=== PATIENT | female | born 1975 | race Hispanic/Latino ===

== ENCOUNTER 2018-05-12 18:50 | Emergency (ER) | payer MEDICARE, OTHER ==
[2018-05-12] MEDS ORDERED: MORPHINE SULFATE 4 MG/1ML SYG ONE (19:41)
[2018-05-12] MEDS ORDERED: KETOROLAC TROMETHAMINE 30MG/ML ONE (19:41)
== END 2018-05-12 21:14 | disposition home or self-care (01) ==
LOC: EDH 18:50
DX: S16.1XXA Strain of muscle, fascia and tendon at neck level, initial encounter (principal); R51 Headache; M25.512 Pain in left shoulder; G62.9 Polyneuropathy, unspecified; X58.XXXA Exposure to other specified factors, initial encounter; Y93.89 Activity, other specified; Y92.89 Other specified places as the place of occurrence of the external cause; Y99.8 Other external cause status
CPT/HCPCS: 70450; 72125; 96372 ×2; 99284; J1885; J2270

== ENCOUNTER 2020-11-05 12:03 | Emergency (ER) | payer OTHER, MEDICARE ==
[~2020-11-05] VITALS: Ht 149.9 cm; Wt 81.2 kg
[2020-11-05 12:25] LABS: BASOPHILS % (AUTO) 0.1 % (0.0-5.0); HEMATOCRIT 42.8 % (36-48); LYMPHOCYTES % (AUTO) 10.8 % (21.0-51.0); MEAN CORPUSCULAR HEMOGLOBIN 28.3 pg (27.0-33.0); MEAN CORPUSCULAR HGB CONC 33.6 g/dL (32.0-36.0); MEAN CORPUSCULAR VOLUME 84.1 fL (79-99); MONOCYTES % (AUTO) 5.2 % (3.0-13.0); NEUTROPHILS % (AUTO) 83.5 % (40.0-77.0); PLATELET COUNT (AUTO) 283 K/uL (130-400); RED BLOOD CELL COUNT(AUTO) 5.09 MIL/uL (4.00-5.50); RED CELL DISTRIBUTION WIDTH 12.3 % (11.0-15.5)
[2020-11-05 12:50] LABS: INR 1.05 (0.85-1.15); PARTIAL THROMBOPLASTIN TIME 26.4 SEC (26.3-35.5); PROTHROMBIN TIME 10.9 SEC (9.6-11.6)
[2020-11-05] MEDS ORDERED: LORAZEPAM 2 MG/ML 1 ML VIAL ONE (12:52)
[2020-11-05 12:56] LABS: APPEARANCE,URINE CLEAR (CLEAR); BILIRUBIN,URINE NEGATIVE (NEGATIVE); COLOR,URINE YELLOW (YELLOW); GLUCOSE, URINE (UA) NEGATIVE (NEGATIVE); KETONES,URINE NEGATIVE (NEGATIVE); LEUKOCYTE ESTERASE ,URINE TRACE (NEGATIVE); NITRATE,URINE NEGATIVE (NEGATIVE); OCCULT BLOOD,URINE NEGATIVE (NEGATIVE); PROTEIN,URINE NEGATIVE (NEGATIVE); UROBILINOGEN,URINE 0.2 mg/dL (0.2-1.0)
[2020-11-05 12:56] LABS: ALBUMIN 3.8 g/dL (3.5-5.0); BILIRUBIN,TOTAL 0.3 mg/dL (0.2-1.0); CREATININE 0.9 mg/dL (0.5-1.5); POTASSIUM 3.8 mmol/L (3.5-5.1); TOTAL PROTEIN, SERUM 8.5 g/dL (6.0-8.3)
[2020-11-05 13:01] LABS: AMPHET/METH SCREEN,URINE NEGATIVE (NEGATIVE); BARBITURATE SCREEN, URINE NEGATIVE (NEGATIVE); BENZODIAZEPINES SCREEN,URINE NEGATIVE (NEGATIVE); CANNABINOID SCREEN,URINE NEGATIVE (NEGATIVE); COCAINE SCREEN,URINE POSITIVE (NEGATIVE); OPIATE SCREEN,URINE NEGATIVE (NEGATIVE); PHENCYCLIDINE SCREEN,URINE NEGATIVE (NEGATIVE)
[2020-11-05 13:02] LABS: HCG,QUAL RESULT NEGATIVE (NEGATIVE)
[2020-11-05 13:05] LABS: BACTERIA,URINE Rare /HPF (None Seen); RBC,URINE 0-1 /HPF (0-1); SQUAMOUS EPITHELIAL CELL,UR Few /HPF (0-2); WBC,URINE 0-1 /HPF (0-1)
[2020-11-05 13:10] LABS: B-TYPE NATRIURETIC PEPTIDE 18 pg/mL (0-100)
[2020-11-05] MEDS ORDERED: THIAMINE HCL 100 MG/ML 2ML VIAL ONE (14:53)
[2020-11-05] MEDS ORDERED: ASPIRIN 81MG CHEW TAB ONE (14:53)
[2020-11-05] MEDS ORDERED: ENOXAPARIN SODIUM 40 MG/0.4 ML SYRINGE SQ ONE (14:54)
[2020-11-05] MEDS ORDERED: PANTOPRAZOLE 40 MG/VIAL ONE (14:55)
[2020-11-05] MEDS ORDERED: ACETAMINOPHEN 325 MG TAB ONE (15:18)
[2020-11-05] MEDS ORDERED: IBUPROFEN 600 MG TABLET ONE (18:15)
[2020-11-05] MEDS ORDERED: IBUPROFEN 600 MG TABLET PO PRN (19:30)
== END 2020-11-05 19:46 | disposition home or self-care (01) ==
LOC: EDH 12:03
DX: I24.9 Acute ischemic heart disease, unspecified (principal); F14.10 Cocaine abuse, uncomplicated; Z20.822 Contact with and (suspected) exposure to COVID-19; I10 Essential (primary) hypertension; Z90.49 Acquired absence of other specified parts of digestive tract; Z90.710 Acquired absence of both cervix and uterus
CPT/HCPCS: 36415; 71045; 80053; 80305; 81001; 81025; 82550; 83880; 84484; 85025; 85610; 85730; 87088; 87426; 93005; 96365; 96372; 96375; 99285; C9113; J1650; J2060; J3411; 96374

== ENCOUNTER 2022-01-20 21:50 | Emergency (ER) | payer OTHER, MEDICARE ==
[2022-01-20 22:30] LABS: BASOPHILS % (AUTO) 0.5 % (0.0-5.0); EOSINOPHILS % (AUTO) 2.5 % (0.0-8.0); HEMATOCRIT 43.6 % (36-48); LYMPHOCYTES % (AUTO) 38.9 % (21.0-51.0); MEAN CORPUSCULAR HEMOGLOBIN 29.6 pg (27.0-33.0); MEAN CORPUSCULAR HGB CONC 33.9 g/dL (32.0-36.0); MEAN CORPUSCULAR VOLUME 87.2 fL (79-99); MONOCYTES % (AUTO) 5.8 % (3.0-13.0); PLATELET COUNT (AUTO) 242 K/uL (130-400); RED CELL DISTRIBUTION WIDTH 11.9 % (11.0-15.5)
[2022-01-20 22:35] LABS: APPEARANCE,URINE CLEAR (CLEAR); BILIRUBIN,URINE NEGATIVE (NEGATIVE); COLOR,URINE YELLOW (YELLOW); GLUCOSE, URINE (UA) NEGATIVE (NEGATIVE); KETONES,URINE NEGATIVE (NEGATIVE); LEUKOCYTE ESTERASE ,URINE NEGATIVE (NEGATIVE); NITRATE,URINE NEGATIVE (NEGATIVE); OCCULT BLOOD,URINE NEGATIVE (NEGATIVE); PROTEIN,URINE NEGATIVE (NEGATIVE); UROBILINOGEN,URINE 0.2 mg/dL (0.2-1.0)
[2022-01-20 22:40] LABS: CREATININE 0.7 mg/dL (0.5-1.5); POTASSIUM 3.8 mmol/L (3.5-5.1)
[2022-01-20 22:47] LABS: ALBUMIN 3.6 g/dL (3.5-5.0); BILIRUBIN,TOTAL 0.1 mg/dL (0.2-1.0); TOTAL PROTEIN, SERUM 7.6 g/dL (6.0-8.3)
[2022-01-20] MEDS ORDERED: LIDOCAINE HCL 2% VISCOUS 15 ML UDCUP PO ONE (23:00)
[2022-01-20] MEDS ORDERED: MAG/ALUM/SIMETH 30 ML UDCUP PO ONE (23:00)
[2022-01-20] MEDS ORDERED: LORAZEPAM 1 MG TABLET ONE (23:22)
[2022-01-20] MEDS ORDERED: LORAZEPAM 1 MG TABLET PO ONE (23:30)
[2022-01-21 00:10] VITALS: BP 153/94
== END 2022-01-21 00:14 | disposition home or self-care (01) ==
LOC: EDH 21:50
DX: R10.13 Epigastric pain (principal); R10.12 Left upper quadrant pain; J45.909 Unspecified asthma, uncomplicated; I10 Essential (primary) hypertension; F41.9 Anxiety disorder, unspecified
CPT/HCPCS: 36415; 80053; 81003; 83690; 84484; 85025; 93005

== ENCOUNTER 2022-07-28 12:24 | Emergency (ER) | payer OTHER, MEDICARE ==
[~2022-07-28] VITALS: Ht 149.9 cm; Wt 86.2 kg
[2022-07-28 13:43] LABS: BASOPHILS % (AUTO) 0.6 % (0.0-5.0); EOSINOPHILS % (AUTO) 2.7 % (0.0-8.0); HEMATOCRIT 39.7 % (36-48); LYMPHOCYTES % (AUTO) 22.8 % (21.0-51.0); MEAN CORPUSCULAR HEMOGLOBIN 28.8 pg (27.0-33.0); MEAN CORPUSCULAR HGB CONC 33.8 g/dL (32.0-36.0); MEAN CORPUSCULAR VOLUME 85.4 fL (79-99); MONOCYTES % (AUTO) 7.7 % (3.0-13.0); NEUTROPHILS % (AUTO) 65.9 % (40.0-77.0); PLATELET COUNT (AUTO) 229 K/uL (130-400); RED BLOOD CELL COUNT(AUTO) 4.65 MIL/uL (4.00-5.50); RED CELL DISTRIBUTION WIDTH 13.1 % (11.0-15.5); WHITE BLOOD COUNT (AUTO) 10.8 K/uL (4.8-10.8)
[2022-07-28 13:52] LABS: APPEARANCE,URINE CLEAR (CLEAR); BILIRUBIN,URINE NEGATIVE (NEGATIVE); COLOR,URINE LIGHT-YELLOW (YELLOW); GLUCOSE, URINE (UA) NEGATIVE (NEGATIVE); KETONES,URINE NEGATIVE (NEGATIVE); LEUKOCYTE ESTERASE ,URINE 75 Leu/uL (NEGATIVE); NITRATE,URINE NEGATIVE (NEGATIVE); OCCULT BLOOD,URINE NEGATIVE (NEGATIVE); PROTEIN,URINE NEGATIVE (NEGATIVE); UROBILINOGEN,URINE 0.2 mg/dL (0.2-1.0)
[2022-07-28 13:58] LABS: AMPHET/METH SCREEN,URINE NEGATIVE (NEGATIVE); BARBITURATE SCREEN, URINE NEGATIVE (NEGATIVE); BENZODIAZEPINES SCREEN,URINE NEGATIVE (NEGATIVE); CANNABINOID SCREEN,URINE NEGATIVE (NEGATIVE); COCAINE SCREEN,URINE NEGATIVE (NEGATIVE); OPIATE SCREEN,URINE NEGATIVE (NEGATIVE); PHENCYCLIDINE SCREEN,URINE NEGATIVE (NEGATIVE)
[2022-07-28 14:03] LABS: HCG,QUALITATIVE URINE NEGATIVE (NEGATIVE)
[2022-07-28 14:18] LABS: CREATININE 0.6 mg/dL (0.5-1.5); POTASSIUM 4.1 mmol/L (3.5-5.1)
[2022-07-28 14:22] LABS: ALBUMIN 3.4 g/dL (3.5-5.0); TOTAL PROTEIN, SERUM 7.5 g/dL (6.0-8.3)
[2022-07-28 14:43] LABS: MUCUS,URINE RARE LPF (None Seen); OTHER CASTS, URINE 1 /LPF (None Seen); SQUAMOUS EPITHELIAL CELL,UR FEW /HPF (0-2)
[2022-07-28] MEDS ORDERED: KETOROLAC 30MG VIAL (30MG/ML) IVP STA (15:10)
[2022-07-28] MEDS ORDERED: DICL20GE TP (15:13)
[2022-07-28] MEDS ORDERED: CEPH500B PO (15:13)
[2022-07-28 15:29] VITALS: BP 141/68
== END 2022-07-28 15:41 | disposition home or self-care (01) ==
LOC: EDH 12:24
DX: G44.209 Tension-type headache, unspecified, not intractable (principal); N39.0 Urinary tract infection, site not specified; J45.909 Unspecified asthma, uncomplicated; I10 Essential (primary) hypertension; K58.9 Irritable bowel syndrome, unspecified; M47.812 Spondylosis without myelopathy or radiculopathy, cervical region; F41.9 Anxiety disorder, unspecified; Z79.899 Other long term (current) drug therapy
CPT/HCPCS: 99284; 70450; 96374; 80053; 80305; 85025; 87088; 81001; 81025; 36415; 72125; J1885

== ENCOUNTER 2022-12-27 13:54 | Emergency (ER) | payer MEDICARE ==
[~2022-12-27] VITALS: Ht 149.9 cm; Wt 82.6 kg
[~2022-12-27 13:54] MED LIST: CEPH500B PO; DICL20GE TP
[2022-12-27] MEDS ORDERED: MORPHINE 4 MG SYG ONE (14:46)
[2022-12-27] MEDS ORDERED: ONDANSETRON 4MG INJ ONE (14:46)
[2022-12-27 14:53] LABS: BASOPHILS % (AUTO) 0.4 % (0.0-5.0); EOSINOPHILS % (AUTO) 1.4 % (0.0-8.0); HEMATOCRIT 42.7 % (36-48); LYMPHOCYTES % (AUTO) 28.8 % (21.0-51.0); MEAN CORPUSCULAR HEMOGLOBIN 28.5 pg (27.0-33.0); MEAN CORPUSCULAR VOLUME 86.4 fL (79-99); MONOCYTES % (AUTO) 6.6 % (3.0-13.0); NEUTROPHILS % (AUTO) 62.5 % (40.0-77.0); PLATELET COUNT (AUTO) 287 K/uL (130-400); RED BLOOD CELL COUNT(AUTO) 4.94 MIL/uL (4.00-5.50); WHITE BLOOD COUNT (AUTO) 11.8 K/uL (4.8-10.8)
[2022-12-27 14:55] LABS: APPEARANCE,URINE CLOUDY (CLEAR); BILIRUBIN,URINE NEGATIVE (NEGATIVE); COLOR,URINE COLORLESS (YELLOW); GLUCOSE, URINE (UA) NEGATIVE (NEGATIVE); KETONES,URINE NEGATIVE (NEGATIVE); LEUKOCYTE ESTERASE ,URINE NEGATIVE Leu/uL (NEGATIVE); NITRATE,URINE NEGATIVE (NEGATIVE); OCCULT BLOOD,URINE LARGE (NEGATIVE); PH,URINE 6.5 (5.0-8.0); PROTEIN,URINE 10 mg/dL (NEGATIVE); UROBILINOGEN,URINE 0.2 mg/dL (0.2-1.0)
[2022-12-27 14:59] LABS: BACTERIA,URINE RARE /HPF (None Seen); MUCUS,URINE RARE LPF (None Seen); RBC,URINE TNTC /HPF (0-1); SQUAMOUS EPITHELIAL CELL,UR MOD /HPF (0-2); WBC,URINE 26-50 /HPF (0-1)
[2022-12-27] MEDS ORDERED: ONDANSETRON 4MG INJ IVP ONE (15:00)
[2022-12-27] MEDS ORDERED: 0.9%NACL 1000ML 1,000 ML IV ONE (15:00)
[2022-12-27] MEDS ORDERED: MORPHINE 4 MG SYG IVP ONE ×2 (15:00→16:30)
[2022-12-27 15:07] LABS: CREATININE 0.6 mg/dL (0.5-1.5); POTASSIUM 3.5 mmol/L (3.5-5.1)
[2022-12-27 15:12] LABS: ALBUMIN 4.2 g/dL (3.5-5.0); TOTAL PROTEIN, SERUM 8.9 g/dL (6.0-8.3)
[2022-12-27 15:33] LABS: AMPHET/METH SCREEN,URINE NEGATIVE (NEGATIVE); BARBITURATE SCREEN, URINE NEGATIVE (NEGATIVE); BENZODIAZEPINES SCREEN,URINE NEGATIVE (NEGATIVE); CANNABINOID SCREEN,URINE NEGATIVE (NEGATIVE); COCAINE SCREEN,URINE POSITIVE (NEGATIVE); OPIATE SCREEN,URINE NEGATIVE (NEGATIVE); PHENCYCLIDINE SCREEN,URINE NEGATIVE (NEGATIVE)
[2022-12-27] MEDS ORDERED: KETOROLAC 30MG VIAL (30MG/ML) ONE (15:50)
[2022-12-27] MEDS ORDERED: KETO10TA2 PO (16:11)
[2022-12-27] MEDS ORDERED: TRAM50TA4 PO (16:11)
[2022-12-27] MEDS ORDERED: TAMS-1 PO (16:11)
[2022-12-27 16:30] VITALS: BP 175/91
[2022-12-27] MEDS ORDERED: KETOROLAC 30MG VIAL (30MG/ML) IVP ONE (16:30)
[2022-12-28] MEDS ORDERED: CEPH500B PO (15:34)
[2022-12-28] MEDS ORDERED: KETO10TA2 PO (15:34)
[2022-12-28] MEDS ORDERED: TRAM50TA4 PO (15:34)
== END 2022-12-27 18:11 | disposition home or self-care (01) ==
LOC: EDH 13:54
DX: N13.2 Hydronephrosis with renal and ureteral calculous obstruction (principal); R11.2 Nausea with vomiting, unspecified; I10 Essential (primary) hypertension; E11.9 Type 2 diabetes mellitus without complications; F32.A Depression, unspecified; F41.9 Anxiety disorder, unspecified; Z90.710 Acquired absence of both cervix and uterus; Z98.890 Other specified postprocedural states
CPT/HCPCS: 99285; 74176; 96374; 96375; 96361; 80053; 80305; 85025; 87088; 81001; 36415; 96376; J7030; J2405; J2270 ×2; J1885

== ENCOUNTER 2022-12-28 14:16 | Emergency (ER) | payer MEDICARE ==
[~2022-12-28] VITALS: Ht 149.9 cm; Wt 82.6 kg
[~2022-12-28 14:16] MED LIST changes: +KETO10TA2 PO; +TAMS-1 PO; +TRAM50TA4 PO
[2022-12-28] MEDS ORDERED: MORPHINE 4 MG SYG IVP ONE (15:00)
[2022-12-28] MEDS ORDERED: ONDANSETRON 4MG INJ IVP ONE (15:00)
[2022-12-28] MEDS ORDERED: KETOROLAC 15MG/ML VIAL (15MG/ML) IV ONE (15:00)
[2022-12-28 15:03] LABS: APPEARANCE,URINE CLOUDY (CLEAR); BILIRUBIN,URINE NEGATIVE (NEGATIVE); COLOR,URINE COLORLESS (YELLOW); GLUCOSE, URINE (UA) NEGATIVE (NEGATIVE); KETONES,URINE 5 mg/dL (NEGATIVE); LEUKOCYTE ESTERASE ,URINE 75 Leu/uL (NEGATIVE); NITRATE,URINE NEGATIVE (NEGATIVE); OCCULT BLOOD,URINE SMALL (NEGATIVE); PROTEIN,URINE NEGATIVE (NEGATIVE); UROBILINOGEN,URINE 0.2 mg/dL (0.2-1.0)
[2022-12-28 15:09] LABS: BACTERIA,URINE RARE /HPF (None Seen); SQUAMOUS EPITHELIAL CELL,UR MOD /HPF (0-2)
[2022-12-28] MEDS ORDERED: TRAM50TA4 PO (15:34)
[2022-12-28] MEDS ORDERED: KETO10TA2 PO (15:34)
[2022-12-28] MEDS ORDERED: CEPH500B PO (15:34)
== END 2022-12-28 16:38 | disposition home or self-care (01) ==
LOC: EDH 14:16
DX: R10.9 Unspecified abdominal pain (principal); I10 Essential (primary) hypertension; E11.9 Type 2 diabetes mellitus without complications; N20.2 Calculus of kidney with calculus of ureter; Z79.899 Other long term (current) drug therapy; Z98.890 Other specified postprocedural states; Z87.442 Personal history of urinary calculi
CPT/HCPCS: 99284; 96374; 96375; 81001; J2405; J2270; J1885

== ENCOUNTER 2022-12-30 10:01 | Emergency (ER) | payer MEDICARE ==
[~2022-12-30] VITALS: Ht 149.9 cm; Wt 82.6 kg
[~2022-12-30 10:01] MED LIST changes: -CEPH500B PO; -TAMS-1 PO
[2022-12-30 10:54] LABS: BASOPHILS % (AUTO) 0.4 % (0.0-5.0); EOSINOPHILS % (AUTO) 1.7 % (0.0-8.0); HEMATOCRIT 40.7 % (36-48); LYMPHOCYTES % (AUTO) 18.4 % (21.0-51.0); MEAN CORPUSCULAR HEMOGLOBIN 28.6 pg (27.0-33.0); MEAN CORPUSCULAR HGB CONC 33.4 g/dL (32.0-36.0); MEAN CORPUSCULAR VOLUME 85.7 fL (79-99); MONOCYTES % (AUTO) 6.1 % (3.0-13.0); PLATELET COUNT (AUTO) 303 K/uL (130-400); RED BLOOD CELL COUNT(AUTO) 4.75 MIL/uL (4.00-5.50); RED CELL DISTRIBUTION WIDTH 12.4 % (11.0-15.5); WHITE BLOOD COUNT (AUTO) 9.9 K/uL (4.8-10.8)
[2022-12-30 10:58] LABS: CREATININE 0.8 mg/dL (0.5-1.5); POTASSIUM 3.5 mmol/L (3.5-5.1)
[2022-12-30] MEDS ORDERED: MORPHINE 2 MG SYG IVP ONE (11:00)
[2022-12-30] MEDS ORDERED: KETOROLAC 15MG/ML VIAL (15MG/ML) IV ONE (11:00)
[2022-12-30 11:03] LABS: TOTAL PROTEIN, SERUM 8.8 g/dL (6.0-8.3)
[2022-12-30 14:12] LABS: APPEARANCE,URINE CLOUDY (CLEAR); BILIRUBIN,URINE NEGATIVE (NEGATIVE); COLOR,URINE LIGHT-YELLOW (YELLOW); GLUCOSE, URINE (UA) NEGATIVE (NEGATIVE); KETONES,URINE 10 mg/dL (NEGATIVE); LEUKOCYTE ESTERASE ,URINE 25 Leu/uL (NEGATIVE); NITRATE,URINE NEGATIVE (NEGATIVE); OCCULT BLOOD,URINE LARGE (NEGATIVE); PROTEIN,URINE 50 mg/dL (NEGATIVE); UROBILINOGEN,URINE 0.2 mg/dL (0.2-1.0)
[2022-12-30] MEDS ORDERED: MORPHINE 4 MG SYG IVP ONE (14:30)
[2022-12-30] MEDS ORDERED: ONDANSETRON 4MG INJ IVP ONE (14:30)
[2022-12-30 14:45] LABS: BACTERIA,URINE FEW /HPF (None Seen); MUCUS,URINE FEW LPF (None Seen); OTHER CASTS, URINE 1 /LPF (None Seen); RBC,URINE TNTC /HPF (0-1); SQUAMOUS EPITHELIAL CELL,UR MOD /HPF (0-2)
[2022-12-30 16:12] VITALS: BP 135/75
[2022-12-30] MEDS ORDERED: ACET1TAB97 PO (16:18)
[2022-12-30] MEDS ORDERED: ONDA4TAB10 PO (16:29)
== END 2022-12-30 16:49 | disposition home or self-care (01) ==
LOC: EDH 10:01
DX: N13.2 Hydronephrosis with renal and ureteral calculous obstruction (principal); Z79.1 Long term (current) use of non-steroidal anti-inflammatories (NSAID)
CPT/HCPCS: 99285; 74176; 96374; 96375; 80053; 84703; 83690; 85025; 81001; 36415; 96376; J2270 ×2; J2405; J1885